=== PATIENT | male | born 1965 | race African-American/Black ===

== ENCOUNTER 2020-09-06 14:52 | Outpatient (CLI) | payer OTHER ==
--- NOTE | 2020-09-06 15:52 | RAD ---
EXAM: 3 views of the left shoulder HISTORY: Shoulder pain COMPARISON: None FINDINGS: There is no evidence of acute fracture or dislocation. No degenerative changes are present. No soft tissue swelling is seen. The visualized thorax is unremarkable. IMPRESSION: No evidence of acute osseous abnormality.
--- NOTE | 2020-09-06 15:54 | RAD ---
EXAM: XR Lumbar Spine 2 Or 3 View PROVIDED CLINICAL HISTORY: Disability examination. COMPARISON: None FINDINGS: There are 5 nonrib-bearing lumbar-type vertebral bodies. There is loss of intervertebral disc height at the L5-S1 level with osteophyte formation present at this level. The vertebral body heights are within normal limits. No fracture or subluxation is seen. Calcifications overlie left hemipelvis like ly related to phleboliths. IMPRESSION: Degenerative changes at the lumbosacral junction.
== END 2020-09-06 14:53 | disposition home or self-care (01) ==
LOC: BICRAD 14:52
PROVIDERS: ATTEND Internal Medicine
DX: Z02.71 Encounter for disability determination (principal); M47.817 Spondylosis without myelopathy or radiculopathy, lumbosacral region
CPT/HCPCS: 72100